=== PATIENT | male | born 1960 | race African-American/Black ===

== ENCOUNTER → 2021-02-17 | Day surgery (SDC) | payer BC, OTHER ==
[~2021-02-17] VITALS: Ht 167.6 cm; Wt 91.6 kg
[~2021-02-17] MED LIST: NORCO5 PO
--- NOTE | ~2021-02-17 | O ---
[facility] [place] [address] OPERATIVE REPORT Name: MONIK FREDERICK Room #: REG [facility]#: [id number] Admission: 02/17/21 Attend Phys: Errol Marin, Discharge: Date of : 58 Report #: [id number] THIS REPORT FOR: cc: Mary Camilo MD, Kelly A. MD Patterson,Errol Mistry MD ~ DATE OF SERVICE: 02/17/2021 PREOPERATIVE DIAGNOSIS: Right inguinal hernia. POSTOPERATIVE DIAGNOSIS: Right inguinal hernia. OPERATION: Laparoscopic repair of right inguinal hernia with mesh. SURGEON: Errol Marin MD ANESTHESIA: General. ESTIMATED BLOOD LOSS: Minimal. SPECIMENS: None. DESCRIPTION OF PROCEDURE: After informed consent was obtained, the patient was brought to the operating room and placed supine. SCDs were placed and working, preoperative antibiotics were administered, general anesthesia was induced. The abdomen was prepped and draped in the usual sterile fashion after a Matt catheter was placed. A 10 mm incision was made below the umbilicus. Fascia was incised and a trocar was placed. Pneumoperitoneum was established. Right and left lower quadrant 5 mm trocars were placed. I scored the peritoneum at the right ASIS. The peritoneum was incised and reflected inferiorly. I was able to dissect out the pubic bone. Cord structures were fully identified. He had a fairly large direct hernia sac. This was all carefully reduced. Once this had been reduced, I inserted a Covidien polypropylene 15 cm mesh. The mesh was [place]. It was tacked to Donnell's ligament with 2 absorbable tacks. I then reapproximated with the peritoneum over the mesh with the tacker. There was 100% coverage of the mesh. Area was then instilled with 10 mL of 1% lidocaine plain. The ports were removed under direct vision. Fascia was then closed with a [id number]-he-hywit 0 Vicryl. Skin was closed with 4-0 Monocryl. Incisions were dressed with Steri-Strips. COMPLICATIONS: None. [facility] [address] [place] [address] OPERATIVE REPORT Name: MONIK FREDERICK [id number] Admission: 02/17/21 Attend Phys: Errol Marin, Discharge: Date of : 58 Report #: [id number] DISPOSITION: The patient was taken to recovery in satisfactory condition. By: 1415 [id number] Errol Marin MD /nt
[2021-02-17 09:35] LABS: HEMATOCRIT 41.3 % (42.0-52.0); HEMOGLOBIN 13.2 gm/dL (14.0-18.0); MCH 29.1 pg (26.0-34.0); RBC 4.54 mil/uL (4.50-6.00); RDW 14.9 % (10.5-14.5); WBC 8.9 thou/uL (4.0-11.0)
[2021-02-17 10:01] LABS: CALCIUM 8.6 mg/dL (8.5-10.1); CREATININE 1.1 mg/dL (0.7-1.3); POTASSIUM 3.8 mmol/L (3.5-5.1)
[2021-02-17 10:25] VITALS: BP 138/88
[2021-02-17 12:53] VITALS: BP 138/88
[2021-02-17 12:54] VITALS: BP 138/88
== END | disposition home or self-care (01) ==
LOC: OR 08:16
PROVIDERS: ATTEND Surgery
DX: K40.90 Unilateral inguinal hernia, without obstruction or gangrene, not specified as recurrent (principal); Z20.822 Contact with and (suspected) exposure to COVID-19
CPT/HCPCS: 50010; 50101; 50411; 50555; 52265; 52266; 53307; 53314; 56525; 56526; 58574; 59029; 62110; 62900; 70005